=== PATIENT | female | born 2000 | race American Indian/Alaskan Native ===

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

== ENCOUNTER 2019-11-28 18:21 | Emergency (ER) | payer SELFPAY ==
[2019-11-28 18:27] VITALS: BP 142/83
== END 2019-11-28 20:19 | disposition left against medical advice (07) ==
LOC: ED 18:21
DX: R07.89 Other chest pain (principal); Z53.21 Procedure and treatment not carried out due to patient leaving prior to being seen by health care provider

== ENCOUNTER 2020-04-24 12:37 | Emergency (ER) | payer SELFPAY ==
[2020-04-24 13:08] VITALS: BP 123/75
--- NOTE | 2020-04-24 13:37 | Emergency Department Report ---
Chief Complaint: Skin Rash Stated Complaint: BED BUG BITES Time Seen by Provider: 04/24/20 13:33 - HPI History of Present Illness: pt is a 19 yo female who presents to the ED with c/o bed bug bites that began 04/22/2020 she states that she spent the night at the hotel on 04/21/2020 she has associated itching she denies any fever, n/v/d, no difficulty breathing PMHx none no allergies to meds Vitals are normal On exam: A few small erythematous papules present on the bilateral upper arms, nothing on the webs of the fingers, no necrosis, no skin denuding, no signs of infection Examination consistent with bedbug bites Discussed supportive care and symptomatic treatment with patient advised pt may take Benadryl for itching, can cause drowsiness to not drive or operate heavy machinery while taking. may use cortisone cream over the counter. please bag up any clothes you wore and seal in garbage bag for 10 days. follow up with a primary care doctor. return to the emergency room for any new or worsening symptoms. Medical screening examination performed and there is no threat to life or limb at this time - Exam Vital Signs: Vital Signs 04/24/20 13:06 Temperature 98.2 F Pulse Rate 82 Respiratory 12 Rate Blood Pressure 123/75 O2 Sat by Pulse 99 Oximetry MSE screening note: Focused history and physical exam performed. ED Disposition for MSE Clinical Impression: Bed bug bite Qualifiers: Encounter type: initial encounter Qualified Code(s): W57.XXXA - Bitten or stung by nonvenomous insect and other nonvenomous arthropods, initial encounter Disposition: MED SCREENING EXAM-LEFT Is pt being admited?: No Does the pt Need Aspirin: No Condition: Stable Additional Instructions: may take Benadryl for itching, can cause drowsiness to not drive or operate heavy machinery while taking. may use cortisone cream over the counter. please bag up any clothes you wore and seal in garbage bag for 10 days. follow up with a primary care doctor. return to the emergency room for any new or worsening symptoms. Referrals: HERLINDA VELASQUEZ MD [Staff Physician] - 3-5 Days [facility] [Provider Group] - 3-5 Days Forms: Work/School Release Form(ED) Time of Disposition: 13:36 Print Language: BRUNEIAN
== END 2020-04-24 15:05 | disposition left against medical advice (07) ==
LOC: ED 12:37
DX: S40.862A Insect bite (nonvenomous) of left upper arm, initial encounter (principal); S40.861A Insect bite (nonvenomous) of right upper arm, initial encounter; W57.XXXA Bitten or stung by nonvenomous insect and other nonvenomous arthropods, initial encounter; Y93.89 Activity, other specified; Y92.89 Other specified places as the place of occurrence of the external cause; Y99.8 Other external cause status
CPT/HCPCS: 99281

== ENCOUNTER 2020-10-16 12:18 | Emergency (ER) | payer SELFPAY ==
[2020-10-16 12:51] VITALS: BP 148/84
--- NOTE | 2020-10-16 12:56 | Emergency Department Report ---
ED General Adult HPI - General Chief complaint: Urogenital-Female Stated complaint: PELVIC PAIN Time Seen by Provider: 10/16/20 12:52 Source: patient Mode of arrival: Ambulatory Limitations: No Limitations - History of Present Illness Initial comments: 20-year-old -[place] female patient without past medical history presents with complaints of urinary frequency, dysuria, and pelvic pain x2 days. She states AZO is not helping. She denies any hematuria, vaginal discharge, dyspareunia, fever/chills/sweats, or back pain. Patient rates her current pain is 8/10 in severity and states it worsens with urination. - Related Data Previous Rx's Medication Instructions Recorded Last Taken Type Cephalexin [Keflex] 500 mg PO TID 10 Days capsule 09/03/17 Unknown Rx Ibuprofen [Motrin] 600 mg PO Q8H PRN #30 tablet 09/03/17 Unknown Rx traMADoL [Ultram 50 MG tab] 50 mg PO Q6HR PRN #20 tablet 09/03/17 Unknown Rx HYDROcodone/APAP 5-325 [[place] 1 each PO Q4HR PRN #12 tablet 06/29/18 Unknown Rx 5/325] Nitrofurantoin Monohyd/M-Cryst 100 mg PO BID #14 capsule 06/29/18 Unknown Rx [Macrobid 100 mg Capsule] Ondansetron [Zofran Odt] 4 mg PO Q8HR PRN #10 tab.rapdis 07/02/18 Unknown Rx Sulfamethoxazole/Trimethoprim 1 each PO BID #6 tablet 09/14/18 Unknown Rx [Bactrim DS TAB] Cyclobenzaprine [Flexeril] 10 mg PO QHS PRN #20 tablet 12/30/18 Unknown Rx Ibuprofen [Motrin 600 MG tab] 600 mg PO Q8H PRN #20 tablet 12/30/18 Unknown Rx Naproxen [Naprosyn] 500 mg PO BID PRN #14 tablet 10/16/20 Unknown Rx Allergies Allergy/AdvReac Type Severity Reaction Status Date / Time No Known Allergies Allergy Verified 06/29/18 09:05 ED Review of Systems ROS: Stated complaint: PELVIC PAIN Other details as noted in HPI Constitutional: denies: chills, diaphoresis, fever, malaise, weakness Respiratory: denies: cough, shortness of breath Endocrine: denies: flushing Gastrointestinal: abdominal pain, nausea. denies: vomiting, diarrhea Genitourinary: urgency, dysuria, frequency. denies: hematuria, discharge, abnormal menses Skin: denies: rash, change in color Hematological/Lymphatic: denies: swollen glands ED Past Medical Hx - Past Medical History Previous Medical History?: No - Surgical History Past Surgical History?: No - Social History Smoking Status: Unknown if ever smoked Substance Use Type: None - Medications Home Medications: Home Medications Medication Instructions Recorded Confirmed Last Taken Type Cephalexin [Keflex] 500 mg PO TID 10 Days capsule 09/03/17 Unknown Rx Ibuprofen [Motrin] 600 mg PO Q8H PRN #30 tablet 09/03/17 Unknown Rx traMADoL [Ultram 50 MG tab] 50 mg PO Q6HR PRN #20 tablet 09/03/17 Unknown Rx HYDROcodone/APAP 5-325 [[place] 1 each PO Q4HR PRN #12 tablet 06/29/18 Unknown Rx 5/325] Nitrofurantoin Monohyd/M-Cryst 100 mg PO BID #14 capsule 06/29/18 Unknown Rx [Macrobid 100 mg Capsule] Ondansetron [Zofran Odt] 4 mg PO Q8HR PRN #10 tab.rapdis 07/02/18 Unknown Rx Sulfamethoxazole/Trimethoprim 1 each PO BID #6 tablet 09/14/18 Unknown Rx [Bactrim DS TAB] Cyclobenzaprine [Flexeril] 10 mg PO QHS PRN #20 tablet 12/30/18 Unknown Rx Ibuprofen [Motrin 600 MG tab] 600 mg PO Q8H PRN #20 tablet 12/30/18 Unknown Rx Naproxen [Naprosyn] 500 mg PO BID PRN #14 tablet 10/16/20 Unknown Rx ED Physical Exam - General Limitations: No Limitations General appearance: alert, in no apparent distress - Head Head exam: Present: atraumatic, normocephalic - Eye Eye exam: Present: normal appearance. Absent: scleral icterus - Respiratory Respiratory exam: Absent: respiratory distress - Cardiovascular Cardiovascular Exam: Present: regular rate - GI/Abdominal GI/Abdominal exam: Present: soft, tenderness (Mild suprapubic), normal bowel sounds. Absent: distended, guarding, rebound, rigid - Back Exam Back exam: Absent: CVA tenderness (R), CVA tenderness (L) - Neurological Exam Neurological exam: Present: alert, oriented X3 - Psychiatric Psychiatric exam: Present: normal affect, normal mood - Skin Skin exam: Present: warm, dry, intact, normal color. Absent: rash, cyanosis, diaphoretic ED Course Vital Signs 10/16/20 12:50 Temperature 97.9 F Pulse Rate 58 L Respiratory 16 Rate Blood Pressure 148/84 [Right] O2 Sat by Pulse 97 Oximetry ED Medical Decision Making - Lab Data Result diagrams: 10/16/20 15:33 10/16/20 15:33 - Radiology Data 20-year-old -[place] female patient without past medical history presents with complaints of urinary frequency, dysuria, and pelvic pain x2 days. She states AZO is not helping. She denies any hematuria, vaginal discharge, dyspareunia, fever/chills/sweats, or back pain. Patient rates her current pain is 8/10 in severity and states it worsens with urination. - Medical Decision Making 20-year-old -[place] female patient without past medical history presents with complaints of urinary frequency, dysuria, and pelvic pain x2 days. She states AZO is not helping. She denies any hematuria, vaginal discharge, dyspareunia, fever/chills/sweats, or back pain. Patient rates her current pain is 8/10 in severity and states it worsens with urination. CBC and CMP are normal. No rebound or guarding is noted on abdominal exam UA is negative for UTI. Patient declines pelvic exam however did perform a self swab. Wet prep is negative. Patient informed to follow-up concerning her gonorrhea and Chlamydia test within 3 days. Her vitals are normal she is well- appearing and stable for discharge home. Strict return precautions were discussed in great detail with patient who verbalized understanding Critical care attestation.: If time is entered above; I have spent that time in minutes in the direct care of this critically ill patient, excluding procedure time. ED Disposition Clinical Impression: Dysuria, Pelvic pain Disposition: - TO HOME OR SELFCARE Is pt being admited?: No Condition: Stable Instructions: Dysuria Prescriptions: Naproxen [Naprosyn] 500 mg PO BID PRN #14 tablet PRN Reason: pain Referrals: [facility] [Provider Group] - 3-5 Days
[2020-10-16 13:27] LABS: HCG Qualitative,Urine Negative (Negative)
[2020-10-16 13:30] LABS: Bacteria,Urine 1+ /HPF (Negative); Bilirubin,Urine NEG (Negative); Blood,Urine NEG (Negative); Color,Urine Yellow (Yellow); Mucus,Urine FEW /HPF; Protein,Urine <15 mg/dL mg/dL (Negative); Urobilinogen,Urine < 2.0 mg/dL (<2.0); WBC,Urine < 1.0 /HPF (0.0-6.0)
[2020-10-16 16:20] LABS: Hematocrit 44.4 % (30.3-42.9); Hemoglobin 15.5 gm/dl (10.1-14.3); Mean Corpuscular HGB Conc 35 % (30-34); Mean Corpuscular Volume 99 fl (79-97); Platelet Count 217 K/mm3 (140-440); Red Blood Count 4.48 M/mm3 (3.65-5.03); Red Cell Distribution Width 12.1 % (13.2-15.2)
[2020-10-16 16:30] LABS: Alanine Aminotransferase 20 units/L (7-56); Albumin 4.3 g/dL (3.9-5); Blood Urea Nitrogen 11 mg/dL (7-17); Calcium 9.2 mg/dL (8.4-10.2); Hemolysis Index 16
[2020-10-16 16:31] LABS: BUN/Creatinine Ratio 22
== END 2020-10-16 16:59 | disposition home or self-care (01) ==
LOC: ED 12:18
DX: R10.2 Pelvic and perineal pain (principal); R35.0 Frequency of micturition; R30.0 Dysuria
CPT/HCPCS: 36415; 80053; 81001; 81025; 85025; 87210; 87591; 99283

== ENCOUNTER 2021-01-02 11:09 | Emergency (ER) | payer SELFPAY ==
[2021-01-02 11:16] VITALS: BP 124/54
--- NOTE | 2021-01-02 11:28 | Emergency Department Report ---
ED Female HPI - General Chief complaint: Vaginal Bleeding Stated complaint: VAGINAL BLEEDING Time Seen by Provider: 01/02/21 11:16 Source: patient Mode of arrival: Ambulatory Limitations: No Limitations - History of Present Illness Initial comments: 20-year-old female with no significant past medical history presents to the ER today complaining of vaginal bleeding. She is currently 6 weeks . Onset of symptoms was 3 days ago. Patient states that the bleeding started light 3 days ago but has since gotten heavier since last night. She states that she has been changing a pad every hour since last night and she is also passing clots. She reports associated lower abdominal cramping. Patient states that she is thinking of not keeping the baby. She did have an appointment with [facility] last Thursday but they did not do anything at the time she states that they told her it was too early but she has a follow- up appointment in the next couple weeks. This is her first . She denies any abnormal vaginal discharge, UTI symptoms, vomiting, diarrhea or any other symptoms at this time. MD Complaint: vaginal bleeding -: Sudden, days(s) (3) - Related Data Previous Rx's Medication Instructions Recorded Last Taken Type Ibuprofen [Motrin] 600 mg PO Q8H PRN #30 tablet 09/03/17 Unknown Rx cephALEXin [Keflex] 500 mg PO TID 10 Days capsule 09/03/17 Unknown Rx traMADoL [Ultram 50 MG tab] 50 mg PO Q6HR PRN #20 tablet 09/03/17 Unknown Rx HYDROcodone/APAP 5-325 [[place] 1 each PO Q4HR PRN #12 tablet 06/29/18 Unknown Rx 5/325] Nitrofurantoin Monohyd/M-Cryst 100 mg PO BID #14 capsule 06/29/18 Unknown Rx [Macrobid 100 mg Capsule] Ondansetron [Zofran Odt] 4 mg PO Q8HR PRN #10 tab.rapdis 07/02/18 Unknown Rx Sulfamethoxazole/Trimethoprim 1 each PO BID #6 tablet 09/14/18 Unknown Rx [Bactrim DS TAB] Cyclobenzaprine [Flexeril] 10 mg PO QHS PRN #20 tablet 12/30/18 Unknown Rx Ibuprofen [Motrin 600 MG tab] 600 mg PO Q8H PRN #20 tablet 12/30/18 Unknown Rx Naproxen [Naprosyn] 500 mg PO BID PRN #14 tablet 10/16/20 Unknown Rx Allergies Allergy/AdvReac Type Severity Reaction Status Date / Time No Known Allergies Allergy Verified 01/02/21 11:11 ED Review of Systems ROS: Stated complaint: VAGINAL BLEEDING Other details as noted in HPI Constitutional: denies: chills, fever Respiratory: denies: cough, shortness of breath, wheezing Cardiovascular: denies: chest pain, palpitations Gastrointestinal: abdominal pain. denies: nausea, vomiting, diarrhea, constipation, hematemesis, melena, hematochezia Genitourinary: other (Abnormal vaginal bleeding). denies: urgency, dysuria, frequency, hematuria, discharge, dyspareunia Skin: denies: rash, lesions Neurological: denies: headache, weakness, paresthesias Psychiatric: denies: anxiety, depression ED Past Medical Hx - Past Medical History Previous Medical History?: No - Surgical History Past Surgical History?: No - Social History Smoking Status: Never Smoker Substance Use Type: None - Medications Home Medications: Home Medications Medication Instructions Recorded Confirmed Last Taken Type Ibuprofen [Motrin] 600 mg PO Q8H PRN #30 tablet 09/03/17 Unknown Rx cephALEXin [Keflex] 500 mg PO TID 10 Days capsule 09/03/17 Unknown Rx traMADoL [Ultram 50 MG tab] 50 mg PO Q6HR PRN #20 tablet 09/03/17 Unknown Rx HYDROcodone/APAP 5-325 [[place] 1 each PO Q4HR PRN #12 tablet 06/29/18 Unknown Rx 5/325] Nitrofurantoin Monohyd/M-Cryst 100 mg PO BID #14 capsule 06/29/18 Unknown Rx [Macrobid 100 mg Capsule] Ondansetron [Zofran Odt] 4 mg PO Q8HR PRN #10 tab.rapdis 07/02/18 Unknown Rx Sulfamethoxazole/Trimethoprim 1 each PO BID #6 tablet 09/14/18 Unknown Rx [Bactrim DS TAB] Cyclobenzaprine [Flexeril] 10 mg PO QHS PRN #20 tablet 12/30/18 Unknown Rx Ibuprofen [Motrin 600 MG tab] 600 mg PO Q8H PRN #20 tablet 12/30/18 Unknown Rx Naproxen [Naprosyn] 500 mg PO BID PRN #14 tablet 10/16/20 Unknown Rx ED Physical Exam - General Limitations: No Limitations General appearance: alert, in no apparent distress - Head Head exam: Present: atraumatic, normocephalic, normal inspection - Eye Eye exam: Present: normal appearance, PERRL, EOMI Pupils: Present: normal accommodation - ENT ENT exam: Present: normal exam, mucous membranes moist - Respiratory Respiratory exam: Present: normal lung sounds bilaterally. Absent: respiratory distress - Cardiovascular Cardiovascular Exam: Present: regular rate, normal rhythm, normal heart sounds - GI/Abdominal GI/Abdominal exam: Present: soft, distended. Absent: tenderness - Neurological Exam Neurological exam: Present: alert, oriented X3, CN II-XII intact, normal gait - Psychiatric Psychiatric exam: Present: normal affect, normal mood - Skin Skin exam: Present: intact ED Course Vital Signs 01/02/21 11:11 Temperature 98.4 F Pulse Rate 74 Respiratory 18 Rate Blood Pressure 124/54 O2 Sat by Pulse 98 Oximetry ED Medical Decision Making - Lab Data Result diagrams: 01/02/21 11:38 01/02/21 12:17 - Radiology Data Radiology results: report reviewed - Medical Decision Making 20-year-old female with no significant past medical history presents to the ER today complaining of vaginal bleeding. She is currently 6 weeks . Onset of symptoms was 3 days ago. Patient states that the bleeding started light 3 days ago but has since gotten heavier since last night. She states that she has been changing a pad every hour since last night and she is also passing clots. She reports associated lower abdominal cramping. Patient states that she is thinking of not keeping the baby. She did have an appointment with [facility] last Thursday but they did not do anything at the time she states that they told her it was too early but she has a follow-up appointment in the next couple weeks. This is her first . She denies any abnormal vaginal discharge, UTI symptoms, vomiting, diarrhea or any other symptoms at this time. Ultrasound report reviewed, no IUP noted. Quant [id number]. Remaining labs unremarkable. Urinalysis negative for UTI. Discussed results with patient. Dinora diagnosis with patient. recommend she follows up with the clinic that she went to last Thursday or she can follow-up with [facility] listed below. Instructed her she will need repeated measurements of her quant hCG. Recommend follow-up in the next 48 to 72 hours. If she is unable to follow-up she can return to the ER. If her bleeding worsens significantly she understands she needs to return to the ER sooner. Patient is well-appearing, not toxic, she is not in any acute distress. She appears well-hydrated. Her vital signs are stable. She has a nonsurgical abdominal exam. Patient stable for discharge. She expressed understanding of instructions and agree with plan. Critical care attestation.: If time is entered above; I have spent that time in minutes in the direct care of this critically ill patient, excluding procedure time. ED Disposition Clinical Impression: Threatened miscarriage Disposition: DC-01 TO HOME OR SELFCARE Is pt being admited?: No Does the pt Need Aspirin: No Condition: Stable Instructions: Threatened Miscarriage Additional Instructions: Follow up with OBGYN in the next 2-3 days for repeat Quant/US. Return to ED if bleeding worsens significantly. Take tylenol for pain. Referrals: [facility] [Provider Group] - 3-5 Days [facility], [Primary Care Provider] - 3-5 Days Forms: Work/School Release Form(ED) Time of Disposition: 14:38
[2021-01-02 11:47] LABS: Bilirubin,Urine NEG (Negative); Blood,Urine LG (Negative); Color,Urine Yellow (Yellow); RBC,Urine > 182.0 /HPF (0.0-6.0)
[2021-01-02 12:49] LABS: Alanine Aminotransferase 17 units/L (7-56); Albumin 4.2 g/dL (3.9-5); Blood Urea Nitrogen 10 mg/dL (7-17); Calcium 8.7 mg/dL (8.4-10.2); Hemolysis Index 29
[2021-01-02 12:52] LABS: Hematocrit 40.7 % (30.3-42.9); Hemoglobin 13.9 gm/dl (10.1-14.3); Mean Corpuscular HGB Conc 34 % (30-34); Mean Corpuscular Volume 100 fl (79-97); Platelet Count 267 K/mm3 (140-440); Red Blood Count 4.06 M/mm3 (3.65-5.03)
[2021-01-02 12:54] LABS: Basophils # (Auto) 0.1 K/mm3 (0.0-0.1); Basophils % (Auto) 0.7 % (0.0-1.8); Eosinophils # (Auto) 0.1 K/mm3 (0.0-0.4); Eosinophils % (Auto) 0.8 % (0.0-4.3); Lymphocytes # (Auto) 2.2 K/mm3 (1.2-5.4); Lymphocytes % (Auto) 26.9 % (13.4-35.0); Monocytes # (Auto) 0.7 K/mm3 (0.0-0.8); Monocytes % (Auto) 8.3 % (0.0-7.3)
[2021-01-02 13:11] LABS: BUN/Creatinine Ratio 17
--- NOTE | 2021-01-02 14:12 | Ultrasound Report ---
ULTRASOUND OBSTETRIC INDICATION / CLINICAL INFORMATION: 6 weeks preg; vag bleed. TECHNIQUE: Transabdominal. COMPARISON: None available. FINDINGS: GESTATIONAL SAC: Not present Uterus is normal in size shape and configuration. Endometrial thickening is present. ADNEXA: No significant abnormality. FREE FLUID: None. ADDITIONAL FINDINGS: None. IMPRESSION: 1. No definite evidence of an intrauterine or extrauterine . Recommend clinical co rrelation Signer Name: Jeyson Gordon MD Signed: 01/02/2021 2:08 PM Workstation Name: [id number]
== END 2021-01-02 14:42 | disposition home or self-care (01) ==
LOC: ED 11:09
DX: O20.0 Threatened abortion (principal); Z79.899 Other long term (current) drug therapy; Z3A.01 Less than 8 weeks gestation of pregnancy
CPT/HCPCS: 36415; 76801; 76817; 80053; 81001; 84702; 85025; 86850; 86900; 86901

== ENCOUNTER 2022-06-27 21:28 | Emergency (ER) | payer SELFPAY | END 2022-06-27 22:44 | disposition left against medical advice (07) | LOC: ED 21:28 | DX: R10.2 Pelvic and perineal pain (principal); Z53.21 Procedure and treatment not carried out due to patient leaving prior to being seen by health care provider; V89.0XXA Person injured in unspecified motor-vehicle accident, nontraffic, initial encounter; Y93.89 Activity, other specified; Y92.89 Other specified places as the place of occurrence of the external cause; Y99.8 Other external cause status ==